=== PATIENT | female | born 1990 | race Caucasian/White ===

== ENCOUNTER 2020-02-14 17:11 | Emergency (ER) | payer MEDICAID ==
[~2020-02-14] VITALS: Ht 167.6 cm; Wt 68.9 kg
[2020-02-14 17:21] VITALS: Ht 167.6 cm; Wt 68.9 kg
[2020-02-14 18:32] VITALS: BP 116/76
== END 2020-02-14 18:32 | disposition home or self-care (01) ==
LOC: ED 17:11
DX: G51.0 Bell's palsy (principal)

== ENCOUNTER 2020-07-10 17:43 | Emergency (ER) | payer MEDICAID ==
[~2020-07-10] VITALS: Ht 157.5 cm; Wt 77.6 kg
[2020-07-10 17:49] VITALS: Ht 157.5 cm; Wt 77.6 kg
[2020-07-10 20:13] VITALS: BP 113/71
== END 2020-07-10 20:13 | disposition home or self-care (01) ==
LOC: ED 17:43
DX: O99.512 Diseases of the respiratory system complicating pregnancy, second trimester (principal); J02.9 Acute pharyngitis, unspecified; Z3A.20 20 weeks gestation of pregnancy; Z20.828 Contact with and (suspected) exposure to other viral communicable diseases
CPT/HCPCS: U0003-CS

== ENCOUNTER 2020-09-21 19:02 | Emergency (ER) | payer OTHER, MEDICAID ==
[~2020-09-21] VITALS: Ht 162.6 cm; Wt 79.8 kg
[2020-09-21 19:19] VITALS: BP 106/68; Ht 162.6 cm; Wt 79.8 kg
== END 2020-09-21 19:56 | disposition home or self-care (01) ==
LOC: ED 19:02
DX: O26.892 Other specified pregnancy related conditions, second trimester (principal); R10.30 Lower abdominal pain, unspecified; M54.5 Low back pain; Z3A.28 28 weeks gestation of pregnancy; V43.52XA Car driver injured in collision with other type car in traffic accident, initial encounter; Y93.I9 Activity, other involving external motion; Y92.488 Other paved roadways as the place of occurrence of the external cause; Y99.8 Other external cause status